=== PATIENT | male | born 1975 | race Caucasian/White ===

== ENCOUNTER 2020-01-31 16:34 | Emergency (ER) | payer MEDICAID, OTHER ==
[~2020-01-31] VITALS: Ht 182.9 cm; Wt 113.5 kg
--- NOTE | 2020-01-31 16:47 | NUR ---
pt to ed for right calf and lower leg swelling, redness and pain x1 week. pt denies trauma. pt statesm "maybe i got bit by something." pt states increased pain with movement. pt connected to monitors. vss. no needs expressed. call light within reach. awaiting edmd assessment.
--- NOTE | 2020-01-31 16:54 | NUR ---
edpa to bs for assessment. awaiting orders.
[2020-01-31] MEDS ORDERED: HYDROcodone/APAP 5/325 TABLET PO STA (17:00)
[2020-01-31] MEDS ORDERED: HYDROcodone/APAP 5/325 TABLET ONE (17:04)
[2020-01-31 17:15] LABS: BASOPHILS # (AUTO) 0.04 x10^3/uL (0-0.1); BASOPHILS % (AUTO) 1 % (0-1); EOSINOPHILS # (AUTO) 0.27 x10^3/uL (0-0.4); EOSINOPHILS % (AUTO) 5 % (1-7); LYMPHOCYTES # (AUTO) 1.83 x10^3/uL (1-3.4); LYMPHOCYTES % (AUTO) 33 % (22-44); MD NO; MEAN CORPUSCULAR HEMOGLOBIN 27.3 pg (27.5-34.5); MEAN CORPUSCULAR HGB CONC 31.7 g/dL (33.2-36.2); MEAN CORPUSCULAR VOLUME 86.1 fL (81-97); MEAN PLATELET VOLUME 6.8 fL (7.4-10.4); MONOCYTES # (AUTO) 0.57 x10^3/uL (0.2-0.8); MONOCYTES % (AUTO) 10 % (2-9); NEUTROPHILS # (AUTO) 2.89 x10^3/uL (1.8-6.8); NEUTROPHILS % (AUTO) 52 % (42-75); PLATELET COUNT 264 x10^3/uL (130-400); RED BLOOD COUNT 4.35 x10^6/uL (4.38-5.82); RED CELL DISTRIBUTION WIDTH 15.3 % (9.4-14.8)
[2020-01-31 17:25] LABS: ALBUMIN 3.5 g/dL (3.4-5.0); ANION GAP 4 mmol/L (5-15); CALCIUM 8.4 mg/dL (8.5-10.1); CHLORIDE 112 mmol/L (98-107); CREATININE 0.94 mg/dL (0.7-1.3)
--- NOTE | 2020-01-31 17:35 | NUR ---
pt resting in room. vss. pt updated on and agreeable to poc. awaiting us. no needs expressed. call light within reach.
[2020-01-31 19:44] VITALS: BP 147/100
--- NOTE | 2020-01-31 19:44 | NUR ---
pt resting in room with lights dimmed. vss. no needs expressed. chart up for recheck.
--- NOTE | 2020-01-31 20:00 | NUR ---
REPORT TO [facility] TO ASSUME CARE AT THIS TIME.
== END 2020-01-31 20:11 | disposition home or self-care (01) ==
LOC: ED 17:06
DX: L03.115 Cellulitis of right lower limb (principal); E11.9 Type 2 diabetes mellitus without complications
CPT/HCPCS: 36415; 80048; 82040; 85025; 99284

== ENCOUNTER 2020-06-28 19:12 | Emergency (ER) | payer MEDICAID, OTHER ==
[~2020-06-28] VITALS: Ht 182.9 cm; Wt 112.6 kg
[2020-06-28] MEDS ORDERED: KETOROLAC 30 MG/1 ML ONE (19:42)
[2020-06-28] MEDS ORDERED: MORPHINE SULFATE 4 MG/ML, 1ML ONE ×2 (19:46→21:12)
[2020-06-28] MEDS ORDERED: ONDANSETRON 2MG/ML, 2ML ONE (19:46)
[2020-06-28] MEDS ORDERED: MORPHINE SULFATE 4 MG/ML, 1ML IVPush ONE ×2 (20:00→21:30)
[2020-06-28] MEDS ORDERED: ONDANSETRON 2MG/ML, 2ML IVPush ONE (20:00)
--- NOTE | 2020-06-28 20:03 | NUR ---
Pt presents to ed c/o R flank painx2 days and nausea and hematuria since this am. States hx of 8 mm kidney stone sx removed 4 months ago. All monitoring applied. Iv initiated. Medicated per nov. Awaiting labs and ct.
[2020-06-28 20:28] LABS: ALBUMIN 3.6 g/dL (3.4-5.0); ANION GAP 7 mmol/L (5-15); CALCIUM 8.4 mg/dL (8.5-10.1); CHLORIDE 112 mmol/L (98-107); CREATININE 0.82 mg/dL (0.7-1.3)
[2020-06-28 20:32] LABS: BASOPHILS # (AUTO) 0.04 x10^3/uL (0-0.1); BASOPHILS % (AUTO) 1 % (0-1); EOSINOPHILS # (AUTO) 0.23 x10^3/uL (0-0.4); EOSINOPHILS % (AUTO) 4 % (1-7); LYMPHOCYTES % (AUTO) 42 % (22-44); MD NO; MEAN CORPUSCULAR HEMOGLOBIN 29.5 pg (27.5-34.5); MEAN CORPUSCULAR HGB CONC 32.2 g/dL (33.2-36.2); MEAN PLATELET VOLUME 7.4 fL (7.4-10.4); MONOCYTES # (AUTO) 0.49 x10^3/uL (0.2-0.8); MONOCYTES % (AUTO) 9 % (2-9); NEUTROPHILS # (AUTO) 2.49 x10^3/uL (1.8-6.8); NEUTROPHILS % (AUTO) 45 % (42-75); PLATELET COUNT 184 x10^3/uL (130-400); RED BLOOD COUNT 4.19 x10^6/uL (4.38-5.82)
--- NOTE | 2020-06-28 20:33 | NUR ---
Pt to RR to attempt ua.
--- NOTE | 2020-06-28 20:37 | NUR ---
Ua sent to lab. States still in pain. ERP aware.
[2020-06-28 21:05] LABS: MICROSCOPIC AUTO
[2020-06-28 21:18] VITALS: BP 131/76
== END 2020-06-28 21:47 | disposition home or self-care (01) ==
LOC: ED 21:00
DX: N20.0 Calculus of kidney (principal); R31.9 Hematuria, unspecified; R10.31 Right lower quadrant pain; R11.0 Nausea
CPT/HCPCS: 36415; 74176; 80048; 81001; 82040; 85025; 87086; 96374; 96375; 96376; 99284; J2270; J2405